=== PATIENT | male | born 1940 | race Caucasian/White ===

== ENCOUNTER 2021-01-16 21:45 | Inpatient (IN) | payer MEDICARE, BC ==
--- NOTE | 2021-01-16 22:39 | ED Physician Documentation ---
PD HPI NVD - Stated complaint Stated Complaint: VOMITING - Chief complaint Chief Complaint: Abd Pain - History obtained from History obtained from: Patient - History of Present Illness Timing - onset: Other (gradually worsening over 1 year (see narrative, below)) Timing - details: Gradual onset Pain level max: 0 Pain level now: 0 Associated symptoms: Weight loss. No: Fever, Abdominal pain, Chest pain, Hematemesis, Melena, Hematochezia Worsened by: Eating (any PO intake) Similar symptoms before: Has not had sx before Recently seen: Not recently seen (patient says he has not seen a doctor on a regular/outpatient basis for nearly 30 years) - Additonal information Additional information: patient states "I can't keep anything down". He says he has had gradually increasing difficulty tolerating solids for approximately the past year; he initially was having sensation of food getting "caught", but gradually felt food was no longer passing into his stomach and would build up in his chest. he would sometimes vomit food back up that he had eaten hours earlier. Since earlier this year, he switched to a liquid diet, but has had increasing difficulty tolerating liquids. Over the past 3 days, he feels sensation that even sips of water are not passing into his stomach. He denies any pain, fever. He is not COVID vaccinated Review of Systems Constitutional: reports: Weight Loss. denies: Fever, Chills, Sweats Throat: reports: Reviewed and negative Cardiac: reports: Reviewed and negative Respiratory: reports: Reviewed and negative GI: denies: Abdominal Pain, Abdominal Swelling, Nausea, Vomiting, Constipation, Diarrhea, Hematemesis, Bloody / black stool : denies: Dysuria, Frequency Neurologic: denies: Generalized weakness, Headache PD PAST MEDICAL HISTORY - Past Medical History Past Medical History: No - Past Surgical History Past Surgical History: No - Present Medications Home Medications: Ambulatory Orders Medication Instructions Recorded Confirmed No Known Home Medications 01/16/21 01/16/21 - Allergies Allergies/Adverse Reactions: Allergies Allergy/AdvReac Type Severity Reaction Status Date / Time No Known Drug Allergies Allergy Verified 01/16/21 22:09 - Living Situation Living Arrangement: reports: At home - Social History Does the pt smoke?: No PD ED PE NORMAL - Vitals Vital signs reviewed: Yes - General General: Alert and oriented X 3, No acute distress, Other (markedly scaphoid abdomen) - HEENT HEENT: Other (tacky/pasty mucous membranes) - Neck Neck: Supple, no meningeal sign - Cardiac Cardiac: No murmur - Respiratory Respiratory: No respiratory distress, Clear bilaterally - Abdomen Abdomen: Soft, Non tender, Non distended, Other (markedly scaphoid abdomen) - Derm Derm: Normal color, Warm and dry - Extremities Extremities: No edema - Neuro Neuro: Alert and oriented X 3 PD ED PE EXPANDED - Cardiac Cardiac: Tachy, Regular Rhythm Results - Vitals Vitals: Vital Signs - 24 hr 01/16/21 01/16/21 01/17/21 22:07 22:08 00:08 Temperature 37.0 C 37.0 C Heart Rate 114 H 114 H 93 Respiratory 17 17 16 Rate Blood Pressure 137/60 H 137/60 H 132/66 H O2 Saturation 97 97 98 01/17/21 01/17/21 02:00 04:00 Temperature 36.9 C Heart Rate 86 90 Respiratory 15 15 Rate Blood Pressure 120/62 115/68 O2 Saturation 99 99 Oxygen O2 Source Room air - Labs Labs: Microbiology 01/17/21 03:50 Occult Blood - Final Stool Laboratory Tests 01/16/21 01/16/21 01/16/21 23:00 23:00 23:18 WBC 12.3 H RBC 3.47 L Hgb 7.1 L Hct 25.5 L MCV 73.5 L MCH 20.5 L MCHC 27.8 L RDW 17.2 H Plt Count 381 MPV 9.8 Neut # (Auto) 10.7 H Lymph # (Auto) 0.4 L [place] # (Auto) 1.0 Eos # (Auto) 0.1 Baso # (Auto) 0.0 Absolute Nucleated RBC 0.00 Nucleated RBC % 0.0 PT INR APTT Sodium 141 Potassium 4.2 Chloride 102 Carbon Dioxide 24 Anion Gap 15.0 H BUN 29 H Creatinine 0.8 Estimated GFR (MDRD) 93 Glucose 170 H Calcium 9.2 Total Bilirubin 0.7 AST 13 ALT 11 Alkaline Phosphatase 63 Total Protein 7.3 Albumin 3.6 Globulin 3.7 Albumin/Globulin Ratio 1.0 Lipase 19 L Urine Color Urine Clarity Urine pH Ur Specific [place] Urine Protein Urine Glucose (UA) Urine Ketones Urine Occult Blood Urine Nitrite Urine Bilirubin Urine Urobilinogen Ur Leukocyte Esterase Ur Microscopic Review Urine Culture Comments Nasal Adenovirus (PCR) Nasal B. parapertussis DNA (PCR) Nasal Coronavir 229E PCR Nasal Coronavir HKU1 PCR Nasal Coronavir NL63 PCR Nasal Coronavir OC43 PCR Nasal Enterovir/Rhinovir PCR Nasal Influenza B PCR Nasal Influenza A PCR Nasal Parainfluen 1 PCR Nasal Parainfluen 2 PCR Nasal Parainfluen 3 PCR Nasal Parainfluen 4 PCR Nasal RSV (PCR) Nasal B.pertussis DNA PCR Nasal C.pneumoniae (PCR) [place]lio Human Metapneumo PCR Nasal M.pneumoniae (PCR) Nasal SARS-CoV-2 (PCR) Blood Type Blood Type Recheck A POSITIVE Antibody Screen 01/16/21 01/17/21 01/17/21 23:19 00:08 04:00 WBC RBC Hgb Hct MCV MCH MCHC RDW Plt Count MPV Neut # (Auto) Lymph # (Auto) [place] # (Auto) Eos # (Auto) Baso # (Auto) Absolute Nucleated RBC Nucleated RBC % PT 15.3 H INR 1.4 H APTT 26.2 Sodium Potassium Chloride Carbon Dioxide Anion Gap BUN Creatinine Estimated GFR (MDRD) Glucose Calcium Total Bilirubin AST ALT Alkaline Phosphatase Total Protein Albumin Globulin Albumin/Globulin Ratio Lipase Urine Color Urine Clarity Urine pH Ur Specific [place] Urine Protein Urine Glucose (UA) Urine Ketones Urine Occult Blood Urine Nitrite Urine Bilirubin Urine Urobilinogen Ur Leukocyte Esterase Ur Microscopic Review Urine Culture Comments Nasal Adenovirus (PCR) NOT DETECTED Nasal B. parapertussis DNA (PCR) NOT DETECTED Nasal Coronavir 229E PCR NOT DETECTED Nasal Coronavir HKU1 PCR NOT DETECTED Nasal Coronavir NL63 PCR NOT DETECTED Nasal Coronavir OC43 PCR NOT DETECTED Nasal Enterovir/Rhinovir PCR NOT DETECTED Nasal Influenza B PCR NOT DETECTED Nasal Influenza A PCR NOT DETECTED Nasal Parainfluen 1 PCR NOT DETECTED Nasal Parainfluen 2 PCR NOT DETECTED Nasal Parainfluen 3 PCR NOT DETECTED Nasal Parainfluen 4 PCR NOT DETECTED Nasal RSV (PCR) NOT DETECTED Nasal B.pertussis DNA PCR NOT DETECTED Nasal C.pneumoniae (PCR) NOT DETECTED [place]lio Human Metapneumo PCR NOT DETECTED Nasal M.pneumoniae (PCR) NOT DETECTED Nasal SARS-CoV-2 (PCR) NOT DETECTED Blood Type A POSITIVE Blood Type Recheck Antibody Screen NEGATIVE 01/17/21 04:30 WBC RBC Hgb Hct MCV MCH MCHC RDW Plt Count MPV Neut # (Auto) Lymph # (Auto) [place] # (Auto) Eos # (Auto) Baso # (Auto) Absolute Nucleated RBC Nucleated RBC % PT INR APTT Sodium Potassium Chloride Carbon Dioxide Anion Gap BUN Creatinine Estimated GFR (MDRD) Glucose Calcium Total Bilirubin AST ALT Alkaline Phosphatase Total Protein Albumin Globulin Albumin/Globulin Ratio Lipase Urine Color YELLOW Urine Clarity CLEAR Urine pH 5.5 Ur Specific [place] 1.015 Urine Protein NEGATIVE Urine Glucose (UA) NEGATIVE Urine Ketones 40 H Urine Occult Blood NEGATIVE Urine Nitrite NEGATIVE Urine Bilirubin NEGATIVE Urine Urobilinogen 0.2 (NORMAL) Ur Leukocyte Esterase NEGATIVE Ur Microscopic Review NOT INDICATED Urine Culture Comments NOT INDICATED Nasal Adenovirus (PCR) Nasal B. parapertussis DNA (PCR) Nasal Coronavir 229E PCR Nasal Coronavir HKU1 PCR Nasal Coronavir NL63 PCR Nasal Coronavir OC43 PCR Nasal Enterovir/Rhinovir PCR Nasal Influenza B PCR Nasal Influenza A PCR Nasal Parainfluen 1 PCR Nasal Parainfluen 2 PCR Nasal Parainfluen 3 PCR Nasal Parainfluen 4 PCR Nasal RSV (PCR) Nasal B.pertussis DNA PCR Nasal C.pneumoniae (PCR) [place]lio Human Metapneumo PCR Nasal M.pneumoniae (PCR) Nasal SARS-CoV-2 (PCR) Blood Type Blood Type Recheck Antibody Screen - Rads (name of study) CT chest with IV contrast Radiology: Prelim report reviewed, See rad report CT A/P with IV contrast Radiology: Prelim report reviewed, See rad report PD MEDICAL DECISION MAKING - ED course Complexity details: reviewed results, re-evaluated patient, considered differential, d/w patient ED course: blood tests demonstrate significant anemia, hgb 7.1; indices are low. CT chest with IV contrast is suspicious for esophageal neoplasm with proximal obstruction. CT A/P demonstrates 1.9 cm hepatic mass. D/W Dr. Coffman, recommends admit to hospitalist service with plan for upper GI and biopsies tomorrow. D/W Dr. Mcmanus who evaluated patient in ED; she then contacted Dr. Coffman and discussed plans and goals for admission and subsequently admitted patient to [facility] hospitalist service. I discussed results with the patient and that further testing would be needed for definitive diagnosis but that his HPI and CT results are highly suspicious for malignancy (cancer). Departure - Departure Disposition: [facility] DC/Xfer Clinical Impression: Esophageal mass Anemia Qualifiers: Anemia type: unspecified type Qualified Code(s): D64.9 - Anemia, unspecified Condition: Stable Discharge Date/Time: 01/17/21 05:42
[2021-01-16 23:17] LABS: BASOPHILS % (AUTO) 0.3 %; EOSINOPHILS # (AUTO) 0.1 10^3/uL (0.0-0.7); EOSINOPHILS % (AUTO) 0.8 %; HCT - HEMATOCRIT 25.5 % (42.0-52.0); HGB - HEMOGLOBIN 7.1 g/dL (14.0-18.0); LYMPHOCYTES # (AUTO) 0.4 10^3/uL (1.5-3.5); LYMPHOCYTES % (AUTO) 2.9 %; MEAN CORPUSCULAR HEMOGLOBIN 20.5 pg (27.0-31.0); MEAN CORPUSCULAR HGB CONC 27.8 g/dL (32.0-36.0); MEAN CORPUSCULAR VOLUME 73.5 fL (80.0-94.0); MEAN PLATELET VOLUME 9.8 fL (7.4-11.4); MONOCYTES % (AUTO) 8.4 %; NEUTROPHILS # (AUTO) 10.7 10^3/uL (1.5-6.6); NEUTROPHILS % (AUTO) 86.9 %; PLT - PLATELET COUNT 381 10^3/uL (130-450); RED BLOOD COUNT 3.47 10^6/uL (4.70-6.10); RED CELL DISTRIBUTION WIDTH 17.2 % (12.0-15.0); WHITE BLOOD COUNT 12.3 x10^3/uL (4.8-10.8)
[2021-01-16 23:31] LABS: ALBUMIN 3.6 g/dL (3.2-5.5); BILIRUBIN,TOTAL 0.7 mg/dL (0.2-1.0); CALCIUM 9.2 mg/dL (8.5-10.3); CREATININE 0.8 mg/dL (0.6-1.2); POTASSIUM 4.2 mmol/L (3.5-5.0); TOTAL PROTEIN 7.3 g/dL (6.7-8.2)
[2021-01-16] MEDS ORDERED: SODIUM CHLORIDE 0.9% 1,000 ML IV STA (23:45)
[2021-01-16 23:46] LABS: INR 1.4 (0.8-1.2); PT - PROTHROMBIN TIME 15.3 secs (9.9-12.6)
[2021-01-16 23:53] LABS: PARTIAL THROMBOPLASTIN TIME 26.2 secs (24.9-33.3)
[2021-01-17] MEDS ORDERED: IOPAMIDOL-300 100 ML VIAL ONE (00:01)
[2021-01-17] MEDS ORDERED: IOPAMIDOL-300 100 ML VIAL IVP ONE (00:37)
[2021-01-17 04:48] LABS: BILIRUBIN,URINE NEGATIVE (NEGATIVE); GLUCOSE, URINE (UA) NEGATIVE (NEGATIVE); KETONES,URINE (UA) 40 mg/dL (NEGATIVE); LEUKOCYTE ESTERASE, URINE NEGATIVE (NEGATIVE); NITRITE,URINE NEGATIVE (NEGATIVE); OCCULT BLOOD,URINE NEGATIVE (NEGATIVE); PH,URINE 5.5 PH (5.0-7.5); PROTEIN,URINE NEGATIVE (NEGATIVE); UROBILINOGEN,URINE 0.2 (NORMAL) E.U./dL (NORMAL)
[2021-01-17] MEDS ORDERED: ONDANSETRON 4 MG/2 ML VIAL IVP PRN (04:49)
[2021-01-17] MEDS ORDERED: D5NS W/20 MEQ KCL 1,000 ML IV SCH (05:00)
[2021-01-17 05:02] LABS: CLARITY,URINE CLEAR (CLEAR)
[2021-01-17 05:02] LABS: B. PARAPERTUSSIS- RESP PCR PAN NOT DETECTED; B. PERTUSSIS- RESP PCR PANEL NOT DETECTED; C. PNEUMONIAE- RESP PCR PANEL NOT DETECTED; CORONAVIRUS 229E-RESP PCR NOT DETECTED; CORONAVIRUS HKU1-RESP PCR NOT DETECTED; CORONAVIRUS NL63-RESP PCR NOT DETECTED; CORONAVIRUS OC43-RESP PCR NOT DETECTED; HUMAN METAPNEUMOVIRUS NOT DETECTED; INFLUENZA A- RESP PCR PANEL NOT DETECTED; INFLUENZA B - RESP PCR PANEL NOT DETECTED; M. PNEUMONIAE- RESP PCR PANEL NOT DETECTED; PARAINFLUENZA VIRUS 1 NOT DETECTED; PARAINFLUENZA VIRUS 2 NOT DETECTED; PARAINFLUENZA VIRUS 3 NOT DETECTED; PARAINFLUENZA VIRUS 4 NOT DETECTED; RHINOVIRUS/ENTEROVIRUS NOT DETECTED; RSV- RESP PCR PANEL NOT DETECTED; SARS-CoV-2 -RESP PCR PANEL NOT DETECTED
--- NOTE | 2021-01-17 05:12 | HISTORY & PHYSICAL EXAMINATION ---
History and Physical - History and Physical Chief complaint: Dysphagia/inability to swallow liquids Source of history: ER signout, patient, medical record review History of present illness: The patient is an 80-year-old white male with no diagnosed past medical problems. He states that last time he visited with a medical professional was in the early . He does not take any outpatient medication. He reports that he used to enjoy drinking scotch with his brother and eating spicy salsa and chips. Early 2020, he noted regurgitation, acid reflux and difficulty swallowing the chips. In June he stopped drinking alcohol completely, subsequently had some trouble with nausea and vomiting and developed even more difficulty swallowing. Initially his swallowing difficulty only included solid foods. A few weeks ago however he started to have more difficulty swallowing even liquids and in the past 3 days he could not keep any liquids down. He used to be 180 pounds, he estimates he lost more than 50 pounds. He does not complain of pain. Reports being constipated. Regarding ER work-up, pertinent results are listed below. Past medical history: No past medical history reported by the patient Outpatient medications: None taken Allergies: No known drug allergies Family history: No pertinent family history in first-degree relatives. Social history and functional status: The patient is a local resident, lives on [address] [facility] [address] with his . He is fully functional, still drives. He used to drink scotch but stopped in June 2020 and since then he has not had any alcohol. He reports significant weight loss more than 50 pounds since June. He is a non-smoker. Advance care plan/care logistics and CODE STATUS: Although the patient is a functional adult he neglected his general health and ignored his symptoms for quite some time. After discussing the ER work-up, his symptoms of dysphagia and significant weight loss, he verbalizes understanding of the severity of his condition. When we discussed ER work-up he was bargaining with the diagnosis, he asked me whether the esophageal obstruction could be secondary to a scar rather than malignancy. He is very articulate, quick with his thinking, easily understands the context, repeats the information back and asks educated and reasonable questions. He understands that most likely his disease is malignant and advanced. He would like to arrive on the diagnosis prior to making decisions regarding care plan. Initially he would like to have all treatment options available to prolong his life. He wishes to have aggressive care, unless his disease is, with certainty, proven uncurable and advanced. He tells me he would like to be transferred to higher level of care if at other hospital more treatment or evaluation options would be available. At the same time he understands that all hospitals are on divert and if he would wait in the ER that would delay his care obtaining a biopsy. Therefore we agree that he would get admitted to our hospital, undergo endoscopy by the surgeon, have biopsy taken which will get him closer to establishing the diagnosis. In the meantime he will receive IV hydration. Receiving a feeding tube at our hospitalis a possibility. The patient understands that other than IV hydration, endoscopy with biopsy and gastrostomy tube placement no other management options are available at [facility]. He wishes to remain full code; he is interested in transferring to higher level of care if additional services and therapies can be offered. Based on the clinical course however he also is open to start palliative care discussion and consider comfort care. The patient is open minded, quite put together and seems appropriately and logically processing the information provided. He understands that with his nutritional status he would not benefit from life support. He will likely switch to DO NOT RESUSCITATE status after endoscopy completed and procedural complication would no longer be a concern. Review of symptoms: 12 point review done, pertinent positives and negatives listed above at history present illness, there was no additional positive. Physical exam: Vital Signs - 24 hr 01/16/21 01/16/21 01/17/21 22:07 22:08 00:08 Temperature 37.0 C 37.0 C Heart Rate 114 H 114 H 93 Respiratory 17 17 16 Rate Blood Pressure 137/60 H 137/60 H 132/66 H O2 Saturation 97 97 98 01/17/21 01/17/21 02:00 04:00 Temperature 36.9 C Heart Rate 86 90 Respiratory 15 15 Rate Blood Pressure 120/62 115/68 O2 Saturation 99 99 Oxygen O2 Source Room air General: The patient is a well-developed thin, elderly male; without acute distress. HEENT: Dry oral mucosa. Respiratory: No increased work of breathing, clear to auscultation bilaterally without wheezes or crackles. CVS: S1, S2, Regular tachycardia, no pathgologic murmur. Abdomen: Scaphoid, large skin folds, nontender, no palpable mass, hypoactive bowel tones. Neurologic: Alert, oriented; no focal lateralizing sign. Psych: Cooperative. Lymph: No pitting pedal edema. Skin: Pallor, no rash. Musculoskeltal: Temporal wasting, visible ribs, skin and bones, no fat pads. Diagnostic work-up: Microbiology 01/17/21 03:50 Occult Blood - Final Stool Laboratory Tests 01/16/21 01/16/21 01/16/21 23:00 23:00 23:18 WBC 12.3 H RBC 3.47 L Hgb 7.1 L Hct 25.5 L MCV 73.5 L MCH 20.5 L MCHC 27.8 L RDW 17.2 H Plt Count 381 MPV 9.8 Neut # (Auto) 10.7 H Lymph # (Auto) 0.4 L [place] # (Auto) 1.0 Eos # (Auto) 0.1 Baso # (Auto) 0.0 Absolute Nucleated RBC 0.00 Nucleated RBC % 0.0 PT INR APTT Sodium 141 Potassium 4.2 Chloride 102 Carbon Dioxide 24 Anion Gap 15.0 H BUN 29 H Creatinine 0.8 Estimated GFR (MDRD) 93 Glucose 170 H Calcium 9.2 Total Bilirubin 0.7 AST 13 ALT 11 Alkaline Phosphatase 63 Total Protein 7.3 Albumin 3.6 Globulin 3.7 Albumin/Globulin Ratio 1.0 Lipase 19 L Urine Color Urine Clarity Urine pH Ur Specific [place] Urine Protein Urine Glucose (UA) Urine Ketones Urine Occult Blood Urine Nitrite Urine Bilirubin Urine Urobilinogen Ur Leukocyte Esterase Ur Microscopic Review Urine Culture Comments Nasal Adenovirus (PCR) Nasal B. parapertussis DNA (PCR) Nasal Coronavir 229E PCR Nasal Coronavir HKU1 PCR Nasal Coronavir NL63 PCR Nasal Coronavir OC43 PCR Nasal Enterovir/Rhinovir PCR Nasal Influenza B PCR Nasal Influenza A PCR Nasal Parainfluen 1 PCR Nasal Parainfluen 2 PCR Nasal Parainfluen 3 PCR Nasal Parainfluen 4 PCR Nasal RSV (PCR) Nasal B.pertussis DNA PCR Nasal C.pneumoniae (PCR) [place]lio Human Metapneumo PCR Nasal M.pneumoniae (PCR) Nasal SARS-CoV-2 (PCR) Blood Type Blood Type Recheck A POSITIVE Antibody Screen 01/16/21 01/17/21 01/17/21 23:19 00:08 04:00 WBC RBC Hgb Hct MCV MCH MCHC RDW Plt Count MPV Neut # (Auto) Lymph # (Auto) [place] # (Auto) Eos # (Auto) Baso # (Auto) Absolute Nucleated RBC Nucleated RBC % PT 15.3 H INR 1.4 H APTT 26.2 Sodium Potassium Chloride Carbon Dioxide Anion Gap BUN Creatinine Estimated GFR (MDRD) Glucose Calcium Total Bilirubin AST ALT Alkaline Phosphatase Total Protein Albumin Globulin Albumin/Globulin Ratio Lipase Urine Color Urine Clarity Urine pH Ur Specific [place] Urine Protein Urine Glucose (UA) Urine Ketones Urine Occult Blood Urine Nitrite Urine Bilirubin Urine Urobilinogen Ur Leukocyte Esterase Ur Microscopic Review Urine Culture Comments Nasal Adenovirus (PCR) NOT DETECTED Nasal B. parapertussis DNA (PCR) NOT DETECTED Nasal Coronavir 229E PCR NOT DETECTED Nasal Coronavir HKU1 PCR NOT DETECTED Nasal Coronavir NL63 PCR NOT DETECTED Nasal Coronavir OC43 PCR NOT DETECTED Nasal Enterovir/Rhinovir PCR NOT DETECTED Nasal Influenza B PCR NOT DETECTED Nasal Influenza A PCR NOT DETECTED Nasal Parainfluen 1 PCR NOT DETECTED Nasal Parainfluen 2 PCR NOT DETECTED Nasal Parainfluen 3 PCR NOT DETECTED Nasal Parainfluen 4 PCR NOT DETECTED Nasal RSV (PCR) NOT DETECTED Nasal B.pertussis DNA PCR NOT DETECTED Nasal C.pneumoniae (PCR) NOT DETECTED [place] Human Metapneumo PCR NOT DETECTED Nasal M.pneumoniae (PCR) NOT DETECTED Nasal SARS-CoV-2 (PCR) NOT DETECTED Blood Type A POSITIVE Blood Type Recheck Antibody Screen NEGATIVE Imaging reviewed per ER signout and per preliminary CT read, CT scan of the chest showed a large obstructing esophageal mass, water not passing through. CT scan of the abdomen showed a 1.6 cm lesion in the liver. In addition there was colonic fecal retention without obstruction. 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 Plan and orders: Admitted as inpatient, with the expectation to have UGIE /biopsy, to receive IV hydration and subsequently either transfer to higher level of care or continue discussions regarding palliative care. Patient understands that at [facility] no inpatient oncology, radiation oncology, esophageal stent placement or complex surgery would be available. Logistics of this patient's care were affected by the statewide shortage of beds and no available hospital to transfer to for higher level of care. Prior to admission the care was coordinated with the ER and with the on-call surgeon/dr. Coffman. Per discussion with the surgeon endoscopy with biopsy and feeding tube placement can be offered in our hospital. Care plan was discussed with the patient, he understands that no further therapy or management is available in our hospital. IV hydration with dextrose and half normal saline. Check hemoglobin A1c. Venodyne boots for DVT prophylaxis. N.p.o. Proton pump inhibitor. Full code for now/continue discussions based on the clinical course. Attestation: I certify that the patient meets inpatient criteria based on the admission diagnosis, and the above assessment, findings and plan; he is expected to be hospitalized for more than 48 hours however to discharge or transfer to other facility within less than 96 hours. Time: 60 minutes spent on admission, which included coordination of the care with surgeon and ER, in addition 20 minutes spent with the patient discussing goals of care and logistics of care.
[2021-01-17] MEDS: SODIUM CHLORIDE FLUSH 0.9% 10 ML SYRINGE IVP PRN ×4 (05:45→23:02)
[2021-01-17] MEDS: DEXTROSE 5%-0.45% NACL 1,000 ML IV SCH ×2 (05:45→20:31)
[2021-01-17] MEDS ORDERED: PANTOPRAZOLE 40 MG VIAL IVP SCH ×2 (07:00→10:10)
[2021-01-17] MEDS: SODIUM CHLORIDE FLUSH 0.9% 10 ML SYRINGE IVP SCH ×2 (07:59→17:34)
--- NOTE | 2021-01-17 10:09 | CT Report ---
PROCEDURE: CHEST W INDICATIONS: unable to tolerate PO, unexplained weight loss CONTRAST: IV CONTRAST: Isovue 300 ml: 100 PO CONTRAST: *NO PO CONTRAST TECHNIQUE: After the administration of intravenous contrast, images were acquired from the pulmonary apices to t he posterior costophrenic angles. Multiplanar MIP reformats were acquired. For radiation dose reduc tion, the following was used: automated exposure control, adjustment of mA and/or kV according to pa tient size. COMPARISON: None. FINDINGS: Image quality: Excellent. Lungs and pleura: Bilateral groundglass infiltrates, right greater than left. No pleural effusions o r pneumothorax. Central and peripheral airways are patent and normal in caliber. Mediastinum: Heart size is normal. No pericardial effusion. No mediastinal or hilar adenopathy by size criteria. Small subcentimeter mediastinal lymph nodes are indeterminate. Thoracic aorta and cent ral pulmonary arteries are normal in size. Esophagus is normal in caliber. Small hiatal hernia. There is marked distal esophageal thickening and appearance of a distal esophage al mass at the GE junction. Proximal esophagus is moderately distended containing fluid and air-fluid level. The CT findings are suspicious for distal esophageal obstruction. 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 No vertebral body compression fractures. No axillary or supraclavicular adenopathy by s ize criteria. The thyroid is normal in size and there are no incidental findings.. Abdomen: There is a 1.9 cm mass in the anterior segment of the right hepatic lobe suspicious for meta stasis. A 1.2 cm low-density lesion in the medial aspect of the posterior right hepatic lobe on hepat ic capsule may be a cyst. IMPRESSION: 1. There is esophageal obstruction with moderately distended proximal esophagus containing fluid and air-fluid level. Distally, there is thickening and appearance of a mass at the GE junction, highly travis spicious for esophageal neoplasm. Recommend EGD for follow-up evaluation. 2. Bilateral groundglass infiltrates suspicious for pneumonia including Covid-19 pneumonia. 3. A 1.9 cm mass in her, suspicious for metastasis. Please see separate CT abdomen report for detail. No significant discrepancy with the preliminary interpretation. Reviewed by: Horacio Zavala MD on 01/17/2021 10:08 AM PDT Approved by: Horacio Zavala MD on 01/17/2021 10:08 AM [facility] Station ID: [id number]
--- NOTE | 2021-01-17 10:22 | CT Report ---
PROCEDURE: Abdomen/Pelvis W INDICATIONS: not tolerating PO, unexplained weight loss CONTRAST: IV CONTRAST: Isovue 300 ml: 100 PO CONTRAST: *NO PO CONTRAST TECHNIQUE: After the administration of IV contrast, 5 mm thick sections acquired from the diaphragms to the symp hysis. 5 mm thick coronal and sagittal reformats were acquired. For radiation dose reduction, the f ollowing was used: automated exposure control, adjustment of mA and/or kV according to patient size. COMPARISON: None. FINDINGS: Image quality: Excellent. ABDOMEN: Lung bases: Heart size is normal. Distal esophageal obstruction with thickening and masslike densit y at the GE junction. There are groundglass infiltrates in lower lobes bilaterally. Solid organs: There is a 1.9 cm low-density mass in the anterior segment of right hepatic lobe patie nt for metastasis. A 1.2 cm hypodensity in the posterior segment of the right hepatic lobe is most li gloria a cyst. Liver and spleen are normal in size. Gallbladder is normal. Biliary system is non dila epi. Pancreas enhances normally. No adrenal nodules. Kidneys demonstrate normal size and enhanceme nt, without hydronephrosis. Peritoneum and bowel: There is a large amount of stool in colon. Bowel loops demonstrate normal wall thickness and caliber. Diverticulosis without diverticulitis. No free fluid or air. Nodes and vessels: No retroperitoneal or mesenteric adenopathy by size criteria. Small gastrohepati c ligament lymph nodes measure up to 0.7 cm, indeterminate. Aorta and inferior vena cava are normal i n size. Moderate atherosclerotic calcifications. Miscellaneous: No ventral hernias. PELVIS: Genitourinary: Bladder wall thickness is normal. Miscellaneous: No inguinal hernias or adenopathy. Bones: Lucency in the T11 vertebral body extending into the right pedicle suspicious for metastasis. There is possible early logical fracture of 11. No vertebral body compression fractures. IMPRESSION: 1. Distal esophageal obstruction with thickening and masslike density at the GE junction suspicious f or neoplasm. Recommend EGD for follow-up evaluation. Please see separate CT chest report for detail. 2. A 1.9 cm low-density mass in the anterior segment of the right hepatic lobe, suspicious for metast asis. A separate 1.2 cm hypodensity in the posterior segment of the right hepatic lobe may be a hepat ic cyst. FDG PET-CT is suggested for follow-up evaluation. This lesion may be amendable for CT or ult rasound guided percutaneous biopsy. 3. Lucent lesion in T11 vertebral body extending to the right posterior element suspicious for osseou s metastasis. There is possible early pathological fracture of T11. Recommend MRI with and without co ntrast for further evaluation. 4. Small indeterminate gastrohepatic ligament lymph nodes are present. These lymph nodes can be evalu ated on FDG PET. 5. Bilateral groundglass infiltrates suspicious for atypical pneumonia. Pulmonary metastases are felt less likely. No significant discrepancy with the preliminary interpretation. Reviewed by: Horacio Zavala MD on 01/17/2021 10:21 AM PDT Approved by: Horacio Zavala MD on 01/17/2021 10:21 AM PDT Station ID: [id number]
[2021-01-17] MEDS ORDERED: BISACODYL 10 MG SUPP PR ONE (10:51)
--- NOTE | 2021-01-17 11:03 | PHARMACY PROGRESS NOTE ---
- Best Possible Medication History Admit Date and Time: 01/17/21 0449 Processed by: Pharmacy Medication History completed: Yes Patient Interview: Completed Secondary Source(s): Insurance records Patient interviewed by filling technician. No home medications. As the person ultimately responsible for medication therapy, providers are able to order a medication from an existing home medication list in [facility] via the "Reconcile Routine" prior to Confirmation of that medication by technical customer support specialist. Such practice is discouraged except when the physician, in their clinical judgment, deems that a medical need exists for a medication without regard to previous use.
--- NOTE | 2021-01-17 12:34 | CONSULTATION NOTE ---
Surgery Consult - Admit Date Hospital Admission Date: 01/17/21 - Consult Date Consult Date: 01/17/21 Requesting Provider: MD Tai - Chief Complaint Chief Complaint: Inability to swallow, weight loss - Home Meds/Allergies Home Medications: Patient History Medication Instructions Recorded Confirmed No Known Home Medications 01/16/21 01/16/21 Allergies/Adverse Reactions: Allergies Allergy/AdvReac Type Severity Reaction Status Date / Time No Known Drug Allergies Allergy Verified 01/16/21 22:09 - Vital Signs Vital Signs: Last Vital Signs Temp 36.6 C 01/17/21 08:00 Pulse 78 01/17/21 08:00 Resp 16 01/17/21 08:00 BP 132/56 H 01/17/21 08:00 Pulse Ox 98 01/17/21 08:00 Intake & Output: Intake & Output 01/14/21 01/15/21 01/16/21 01/17/21 23:59 23:59 23:59 23:59 Intake Total 1000 Output Total 0 Balance 1000 - Lab Results Result Diagrams: 01/16/21 23:00 01/16/21 23:00 - Consultation Note Consultation Note: Terell is a pleasant 80-year-old gentleman who presented to the emergency room last evening complaining that he was unable to swallow. He reports that for the last several months, approximately a year, he has noticed its been a little bit difficult to swallow food. When it became difficult to swallow solid food he switched to softer food and eventually to liquids. In the past 3 to 4 days, he says he has been unable to keep liquids down. Over the same period of time, he has had a significant amount of weight loss. Terell is a very pleasant gentleman and he says he is not the kind of gentleman to go to doctors frequently. The last time he saw physician was sometime in the night in the emergency room last evening he was worked up and a chest CT revealed an obstructing esophageal mass. He was given the option to wait for transfer to a higher level of care for consideration of stenting but no beds were available. In addition to the mass in the esophagus, there is a very suspicious lesion present in the liver. He was admitted to the medicine service and I have been consulted for consideration of EGD for diagnosis. Physical examination reveals a very thin and frail but pleasant gentleman he is in no obvious distress. He tells me that he is in pain because he needs to have a bowel movement. He feels very constipated and says that he has a cramping pain in his right abdomen. He wants to take a pill for this but he is not able to swallow the pill. A suppository has been ordered. HEENT: Normocephalic and atraumatic, pupils equal round reactive to light and accommodation with anicteric sclera Lungs: Clear bilaterally Heart: Regular rate and rhythm Abdomen: Soft, scaphoid, active bowel sounds. Extremities: No evidence of ischemia. Assessment is pleasant gentleman with an ominous appearing esophageal mass. He understands this may very well represent an advanced malignancy. We discussed the risks and benefits of EGD with biopsy today. This will at least give us a direction going forward. If it is possible to pass a feeding tube or an NG tube beyond this mass we will try to do so so that we have a way to feed him while decisions are made.After careful consideration of all the risks and benefits he has elected to schedule the procedure.
[2021-01-17 13:00] LABS: ESTIMATED AVERAGE GLUCOSE 137 mg/dL (70-100); HEMOGLOBIN A1c% 6.4 % (4.27-6.07)
--- NOTE | 2021-01-17 14:13 | ANESTHESIA ---
Pre-Anesthesia VS, & Labs - Diagnosis Esophageal mass, dsyphagia - Procedure EGD with biopsy Vital Signs: Temp Pulse Resp BP Pulse Ox 36.6 C 78 16 132/56 H 98 01/17/21 08:00 01/17/21 08:00 01/17/21 08:00 01/17/21 08:00 01/17/21 08:00 Height: 5 ft 8 in Weight (kg): 56.6 kg Body Mass Index: 18.9 BMI Classification: Healthy weight - NPO >8 hours - Lab Results Current Lab Results: Laboratory Tests 01/17/21 00:08: Estimat Average Glucose 137 H, Hemoglobin A1c % 6.4 H 01/17/21 00:08: Blood Type A POSITIVE, Antibody Screen NEGATIVE 01/16/21 23:19: PT 15.3 H, INR 1.4 H, APTT 26.2 01/16/21 23:18: Blood Type Recheck A POSITIVE 01/16/21 23:00: Sodium 141, Potassium 4.2, Chloride 102, Carbon Dioxide 24, Anion Gap 15.0 H, BUN 29 H, Creatinine 0.8, Estimated GFR (MDRD) 93, Glucose 170 H, Calcium 9.2, Total Bilirubin 0.7, AST 13, ALT 11, Alkaline Phosphatase 63, Total Protein 7.3, Albumin 3.6, Globulin 3.7, Albumin/Globulin Ratio 1.0, Lipase 19 L 01/16/21 23:00: WBC 12.3 H, RBC 3.47 L, Hgb 7.1 L, Hct 25.5 L, MCV 73.5 L, MCH 20.5 L, MCHC 27.8 L, RDW 17.2 H, Plt Count 381, MPV 9.8, Neut # (Auto) 10.7 H, Lymph # (Auto) 0.4 L, [place] # (Auto) 1.0, Eos # (Auto) 0.1, Baso # (Auto) 0.0, Ab solute Nucleated RBC 0.00, Nucleated RBC % 0.0 Fish Bones: 01/16/21 23:00 01/16/21 23:00 Home Medications and Allergies Home Medications: Ambulatory Orders No Known Home Medications 01/16/21 Active Medications Dextrose/Sodium Chloride (D5.45ns) 1,000 mls @ 83.333 mls/hr IV .Q12H [facility] Last Admin: 01/17/21 05:45 Dose: 83.333 mls/hr Documented by: Ondansetron HCl (Ondansetron 4 Mg/2 Ml Vial) 4 mg IVP Q6HR PRN PRN Reason: Nausea / Vomiting Pantoprazole Sodium (Pantoprazole 40 Mg Vial) 40 mg IVP DAILY [facility] Sodium Chloride (Sodium Chloride Flush 0.9% 10 Ml Syringe) 10 ml IVP PRN PRN PRN Reason: NEEDED PER PROVIDER ORDERS Last Admin: 01/17/21 05:45 Dose: 10 ml Documented by: Sodium Chloride (Sodium Chloride Flush 0.9% 10 Ml Syringe) 10 ml IVP 0100,0900,1700 [facility] Last Admin: 01/17/21 07:59 Dose: 10 ml Documented by: No Known Home Medications 01/16/21 Allergies/Adverse Reactions: Allergies Allergy/AdvReac Type Severity Reaction Status Date / Time No Known Drug Allergies Allergy Verified 01/16/21 22:09 Anes History & Medical History - Anesthetic History Anesthesia Complications: reports: No previous complications - Medical History Cardiovascular: reports: None Pulmonary: reports: None Gastrointestinal: reports: GERD Urinary: reports: None Neuro: reports: None Musculoskeletal: reports: None Endocrine/Autoimmune: reports: Type 2 diabetes (probable) Blood Disorders: reports: None Skin: reports: None Smoking Status: Former smoker Psychosocial: reports: Alcohol (quit in [facility]) Other Past Medical History: missing teeth, PTSD 2001 - Surgical History General: reports: Appendectomy Eyes Ears Nose Throat (EENT): reports: Tonsil/Adenoidectomy Exam General: Alert, Oriented x3, Cooperative, No acute distress Dental: WNL Mouth Openin Fingerbreadth Neck Mobility: Normal Mallampati classification: I Mental/Cognitive Status: Alert/Oriented X3, Normal for patient Plan Anesthesia Type: Total IV Consent for Procedure(s) Verified and Reviewed: Yes Code Status: Attempt Resuscitation ASA classification: 3-Severe systemic disease Is this case an emergency?: No
[2021-01-17] MEDS ORDERED: SALINE ENEMA 133 ML BOTTLE RC ONE (14:14)
[2021-01-17] MEDS ORDERED: PROPOFOL 200 MG/20 ML VIAL IVP ONE (15:10)
[2021-01-17] MEDS ORDERED: LIDOCAINE-PF 2% 10 ML AMP SUBQ ONE (15:10)
[2021-01-17] MEDS ORDERED: fentaNYL 100 MCG/2 ML VIAL ONE (15:24)
--- NOTE | 2021-01-17 17:04 | XRAY Report ---
PROCEDURE: Abdomen 1 View X-Ray INDICATIONS: Dobhoff placement TECHNIQUE: 1 view of the abdomen were acquired. COMPARISON: Chest CT 01/17/2021 FINDINGS: Surgical changes and devices: Dobbhoff catheter is noted projecting below the left hemidiaphragm. Bowel: No pneumoperitoneum. The bowel gas pattern is normal. Soft tissues: No masses; visualized solid organ contours appear normal in size. No suspicious abdom inal calcifications. Contrast is noted within the bladder consistent with recent contrast CT exam. Bones: No suspicious bony abnormalities. IMPRESSION: Dobbhoff placement as above. Reviewed by: Megan Williamson MD on 01/17/2021 5:03 PM PDT Approved by: Megan Williamson MD on 01/17/2021 5:03 PM PDT Station ID: [id number]
[2021-01-17] MEDS: MORPHINE 2 MG/ML CARPUJECT IVP PRN ×3 (19:05→23:02)
[2021-01-17] MEDS ORDERED: MINERAL OIL ENEMA 133 ML BOTTLE RC ONE (20:00)
--- NOTE | 2021-01-17 20:32 | ANESTHESIA POST OP EVALUATION ---
Anesthesia Post Eval - Post Anesthesia Eval Vitals: Last Vital Signs Temp 36.8 C 01/17/21 16:15 Pulse 78 01/17/21 17:15 Resp 16 01/17/21 16:00 BP 122/61 01/17/21 17:15 Pulse Ox 96 01/17/21 16:00 CV Function Including HR & BP: Stable Pain Control: Satisfactory Nausea & Vomiting: Negative Mental Status: Baseline Respiratory Status: Airway Patent Hydration Status: Satisfactory Anesthesia Complications: None
[2021-01-18] MEDS: SODIUM CHLORIDE FLUSH 0.9% 10 ML SYRINGE IVP SCH ×3 (00:59→18:24)
[2021-01-18] MEDS: MORPHINE 2 MG/ML CARPUJECT IVP PRN ×6 (00:59→20:31)
[2021-01-18] MEDS ORDERED: MAGNESIUM CITRATE 296 ML BOTTLE NG PRN ×2 (06:10→06:57)
[2021-01-18] MEDS: DEXTROSE 5%-0.45% NACL 1,000 ML IV SCH (06:57)
[2021-01-18 08:40] LABS: BASOPHILS % (AUTO) 0.2 %; EOSINOPHILS # (AUTO) 0.1 10^3/uL (0.0-0.7); EOSINOPHILS % (AUTO) 1.7 %; HCT - HEMATOCRIT 21.1 % (42.0-52.0); LYMPHOCYTES # (AUTO) 0.6 10^3/uL (1.5-3.5); LYMPHOCYTES % (AUTO) 7.1 %; MEAN CORPUSCULAR HEMOGLOBIN 20.7 pg (27.0-31.0); MEAN PLATELET VOLUME 9.6 fL (7.4-11.4); MONOCYTES # (AUTO) 0.9 10^3/uL (0.0-1.0); MONOCYTES % (AUTO) 11.2 %; NEUTROPHILS # (AUTO) 6.7 10^3/uL (1.5-6.6); NEUTROPHILS % (AUTO) 79.4 %; PLT - PLATELET COUNT 244 10^3/uL (130-450); RED BLOOD COUNT 2.85 10^6/uL (4.70-6.10); RED CELL DISTRIBUTION WIDTH 17.3 % (12.0-15.0); WHITE BLOOD COUNT 8.4 x10^3/uL (4.8-10.8)
[2021-01-18 08:43] LABS: HGB - HEMOGLOBIN 5.9 g/dL (14.0-18.0); SLIDE REVIEW? Indicated
[2021-01-18 09:14] LABS: RBC MORPHOLOGY (MULTIPLE) 2+ MICROCYTOSIS (NORMAL)
[2021-01-18] MEDS: LACTULOSE 10 GM /15 ML UDC PO SCH ×2 (11:07→13:03)
[2021-01-18] MEDS: PANTOPRAZOLE 40 MG VIAL IVP SCH (11:30)
[2021-01-18] MEDS: SODIUM CHLORIDE FLUSH 0.9% 10 ML SYRINGE IVP PRN ×2 (11:31→11:54)
--- NOTE | 2021-01-18 13:16 | PROVIDER PROGRESS NOTE ---
Subjective - General Admit Date: 01/17/21 Procedure Date: 01/17/21 Post Op Days: 1 Procedure Performed: EGD with biopsy and feeding tube placement - Other Other Information/Narrative: Called to see patient this morning as his feeding tube would not flush. He tells me he is feeling very anxious. He is considering transfer to [place] so that he can have a higher level of care and begin treatment for esophageal cancer. He says he is not in pain anymore. The right-sided abdominal pain has improved with bowel movements. Objective - Patient Data Vital Signs: Vital Signs x48h Temp Pulse Resp BP 01/18/21 12:35 36.6 C 81 16 139/57 H 01/18/21 12:12 36.6 C 80 14 129/49 L Weight: Weight 01/16/21 01/17/21 01/18/21 23:59 23:59 23:59 Weight (kg) 56.6 kg 56.6 kg 56.6 kg Intake & Output: Intake and Output Totals x24h 01/16/21 01/17/21 01/18/21 23:59 23:59 23:59 Intake Total 1999.000 1334.717 Output Total 0 75 Balance 1999.000 1259.717 - Lab Results Lab Results: 01/18/21 08:33 01/16/21 23:00 Other Lab Results: Lab Results x24hrs 01/18/21 01/17/21 01/17/21 Range/Units 08:33 00:08 00:08 WBC 8.4 (4.8-10.8) x10^3/uL RBC 2.85 L (4.70-6.10) 10^6/uL Hgb 5.9 L* (14.0-18.0) g/dL Hct 21.1 L (42.0-52.0) % MCV 74.0 L (80.0-94.0) fL MCH 20.7 L (27.0-31.0) pg MCHC 28.0 L (32.0-36.0) g/dL RDW 17.3 H (12.0-15.0) % Plt Count 244 (130-450) 10^3/uL MPV 9.6 (7.4-11.4) fL Neut # (Auto) 6.7 H (1.5-6.6) 10^3/uL Lymph # (Auto) 0.6 L (1.5-3.5) 10^3/uL [place] # (Auto) 0.9 (0.0-1.0) 10^3/uL Eos # (Auto) 0.1 (0.0-0.7) 10^3/uL Baso # (Auto) 0.0 (0.0-0.1) 10^3/uL Absolute Nucleated RBC 0.00 x10^3/uL Nucleated RBC % 0.0 /100WBC Manual Slide Review Indicated RBC Morph Micro Appear 2+ MICROCYTOSIS (NORMAL) Estimat Average Glucose 137 H (70-100) mg/dL Hemoglobin A1c % 6.4 H (4.27-6.07) % Blood Type A POSITIVE Antibody Screen NEGATIVE Crossmatch IS Only See Detail - Current Medications Current Medications: Current Medications Generic Name Dose Route Start Last Admin Trade Name Freq PRN Reason Stop Dose Admin Dextrose/Sodium Chloride 1,000 mls @ 83.333 mls/hr 01/17/21 05:00 01/18/21 12:32 D5.45ns IV 0 mls/hr .Q12H [facility] Infusion Lactulose 10 gm 01/18/21 09:00 01/18/21 13:03 Lactulose 10 Gm /15 Ml Udc PO 10 gm DAILY [facility] Administration Morphine Sulfate 4 mg 01/18/21 06:11 01/18/21 11:53 Morphine 2 Mg/Ml Carpuject IVP 4 mg Q2HR PRN Administration PAIN Pantoprazole Sodium 40 mg 01/18/21 09:00 01/18/21 11:30 Pantoprazole 40 Mg Vial IVP 40 mg DAILY [facility] Administration Sodium Chloride 10 ml 01/17/21 04:49 01/18/21 11:54 Sodium Chloride Flush 0.9% 10 Ml Syringe IVP 10 ml PRN PRN Administration NEEDED PER PROVIDER ORDERS Sodium Chloride 10 ml 01/17/21 09:00 01/18/21 11:30 Sodium Chloride Flush 0.9% 10 Ml Syringe IVP 10 ml 0100,0900,1700 [facility] Administration - Physical Exam Comments/Other: Above tube is in place. It is untaped and the end port closed. With a 20 cc syringe containing tap water in the side-port, the tube was gently pulled back approximately 5 cm.At that point, I was able to easily flush with no resistance. Impression/Plan - Problem List Problem List: Dobbhoff tube in working order now. Agree with all plans for tube feeds and supportive care.
--- NOTE | 2021-01-18 14:12 | PROVIDER PROGRESS NOTE ---
Subjective - Prog Note Date Prog Note Date: 01/18/21 Prog Note Time: 14:10 - Subjective Pt reports feeling: No change Subjective: he is miserable w abd distension from no BM for days. Has had tap water enema, oil retention enema, and no results. Dobhoff in place. EGD discussed w Dr. Coffman. This morning his hemoglobin was 5.9. Late this afternoon he had emesis of combination of saliva and some bright red blood. Blood pressure was stable with this. He is not tachycardic. No hematochezia. Current Medications - Current Medications Current Medications: Active Medications Dextrose/Sodium Chloride (D5.45ns) 1,000 mls @ 83.333 mls/hr IV .Q12H [facility] Last Infusion: 01/18/21 12:32 Dose: 0 mls/hr Documented by: Insulin Aspart (Insulin Aspart 300 Unit/3 Ml Pen) 1 - 9 unit SUBQ 0800,1200,1700,2100 [facility]; Protocol Lactulose (Lactulose 10 Gm /15 Ml Udc) 10 gm PO DAILY [facility] Last Admin: 01/18/21 13:03 Dose: 10 gm Documented by: Lorazepam (Lorazepam 2 Mg/Ml Vial) 0.5 mg IVP Q2H PRN PRN Reason: Anxiety Magnesium Citrate (Magnesium Citrate 296 Ml Bottle) 296 ml NG DAILY PRN PRN Reason: CONSTIPATION Morphine Sulfate (Morphine 2 Mg/Ml Carpuject) 4 mg IVP Q2HR PRN PRN Reason: PAIN Last Admin: 01/18/21 11:53 Dose: 4 mg Documented by: Ondansetron HCl (Ondansetron 4 Mg/2 Ml Vial) 4 mg IVP Q6HR PRN PRN Reason: Nausea / Vomiting Pantoprazole Sodium (Pantoprazole 40 Mg Vial) 40 mg IVP DAILY [facility] Last Admin: 01/18/21 11:30 Dose: 40 mg Documented by: Sodium Chloride (Sodium Chloride Flush 0.9% 10 Ml Syringe) 10 ml IVP PRN PRN PRN Reason: NEEDED PER PROVIDER ORDERS Last Admin: 01/18/21 11:54 Dose: 10 ml Documented by: Sodium Chloride (Sodium Chloride Flush 0.9% 10 Ml Syringe) 10 ml IVP 0100,0900,1700 [facility] Last Admin: 01/18/21 11:30 Dose: 10 ml Documented by: No Known Home Medications 01/16/21 Objective - Vital Signs/Intake & Output Reviewed Vital Signs: Yes Vital Signs: Vital Signs x48h Temp Pulse Resp BP 01/18/21 12:35 36.6 C 81 16 139/57 H 01/18/21 12:12 36.6 C 80 14 129/49 L Intake & Output: Intake & Output 01/15/21 01/16/21 01/17/21 01/18/21 23:59 23:59 23:59 23:59 Intake Total 1999. 1334.717 Output Total 0 75 Balance 1259.717 - Objective General Appearance: positive: Alert, Other (Very weak appearing very fatigued appearing elderly gentleman who looks older than stated age and is very gaunt, cachectic with rib cage visible, bilateral temporal wasting. Just the energy is speaking worse and out. Voice is low and slightly hoarse.) Eyes Bilateral: positive: PERRL, EOMI ENT: positive: Dry mucous membranes Neck: positive: No JVD. negative: Stiff neck Respiratory: positive: Rhonchi, Other (No respiratory distress but speaking exhausts him.) Cardiovascular: positive: Regular rate & rhythm, Systolic murmur. negative: Gallop/S4, Friction rub Abdomen: positive: No organomegaly, Nml bowel sounds, No distention, Tenderness (Mild and generalized in the upper quadrants.). negative: Guarding, Rebound Skin: positive: Warm, Dry, Pallor Extremities: positive: Full ROM, No pedal edema, Other (Severe loss of muscle mass throughout his entire body. Rib cage visible.) Neurologic/Psychiatric: positive: Oriented x3, Motor nml, Weakness (Moderate to severe. Generalized. Nonfocal.). negative: CN's nml (2-12) (Deaf especially in his left ear) - Lab Results Fish Bones: 01/18/21 08:33 01/16/21 23:00 Other Labs: Lab Results x24hrs 01/18/21 01/17/21 Range/Units 08:33 00:08 WBC 8.4 (4.8-10.8) x10^3/uL RBC 2.85 L (4.70-6.10) 10^6/uL Hgb 5.9 L* (14.0-18.0) g/dL Hct 21.1 L (42.0-52.0) % MCV 74.0 L (80.0-94.0) fL MCH 20.7 L (27.0-31.0) pg MCHC 28.0 L (32.0-36.0) g/dL RDW 17.3 H (12.0-15.0) % Plt Count 244 (130-450) 10^3/uL MPV 9.6 (7.4-11.4) fL Neut # (Auto) 6.7 H (1.5-6.6) 10^3/uL Lymph # (Auto) 0.6 L (1.5-3.5) 10^3/uL [place] # (Auto) 0.9 (0.0-1.0) 10^3/uL Eos # (Auto) 0.1 (0.0-0.7) 10^3/uL Baso # (Auto) 0.0 (0.0-0.1) 10^3/uL Absolute Nucleated RBC 0.00 x10^3/uL Nucleated RBC % 0.0 /100WBC Manual Slide Review Indicated RBC Morph Micro Appear 2+ MICROCYTOSIS (NORMAL) Blood Type A POSITIVE Antibody Screen NEGATIVE Crossmatch IS Only See Detail Assessment/Plan - Problem List (1) Esophageal mass Impression: Status post EGD in January 17. It is an ominous looking mass that is large. You can see areas of the submucosa that is also having expansion of possible tumor growth. Biopsy report is pending. Strong suspicion of esophageal neoplasm. He has a 1.9 cm low-density mass in the anterior segment of the right hepatic lobe. Plan: Twice daily proton pump inhibitor Await pathology. Patient states he is interested in getting an opinion about treatment. I have asked him to start thinking about advance care planning. While the for step is to get pathology report, to then decide what he would like to do about treatment. The second part would be what would happen if he does not offer treatment. If he could please start defining the quality of life things that make him happy. What can he do now what he is he let go. At what point would he want us to forego treatment. Is there any treatment that he would draw a line in the sand for. None of these are questions that he can answer right now and I explained that I did not expect him to. But to start having those conversations with his family, children, to let us know what to do for the future. (2) Anemia Impression: With severe microcytosis. Plan: Transfuse every time he gets below 6 7 g of hemoglobin.. Assume he has had chronic GI blood loss because of this esophageal mass. Qualifiers: Anemia type: iron deficiency Qualified Code(s): D64.9 - Anemia, unspecified (3) Protein-calorie malnutrition, severe Impression: He has had significant muscle wasting seen on exam. Has almost no subcutaneous fat. He has been eating less than 50% of any food for 2 weeks or more and in fact stopped eating 3 weeks ago. He just could not clear his secretions anymore. He is lost more than 7.5% of his weight in the last 3 months. Plan: Dobbhoff tube is in place. I have asked nutrition to please start feeding him. (4) Glucose intolerance Impression: Seen by his random glucose and glycosylated hemoglobin. Plan: Start sliding scale insulin 3 times daily
[2021-01-18] MEDS ORDERED: INSULIN ASPART 300 UNIT/3 ML PEN SUBQ SCH (17:00)
[2021-01-18] MEDS: INSULIN REGULAR HUMAN 300 UNIT/3 ML VIAL SUBQ SCH (20:38)
[2021-01-19] MEDS: MORPHINE 2 MG/ML CARPUJECT IVP PRN ×2 (00:39→04:49)
[2021-01-19] MEDS: INSULIN REGULAR HUMAN 300 UNIT/3 ML VIAL SUBQ SCH ×4 (00:40→17:55)
[2021-01-19] MEDS: SODIUM CHLORIDE FLUSH 0.9% 10 ML SYRINGE IVP SCH ×3 (00:47→17:20)
[2021-01-19 06:03] LABS: BASOPHILS % (AUTO) 0.3 %; EOSINOPHILS % (AUTO) 0.1 %; HCT - HEMATOCRIT 24.8 % (42.0-52.0); HGB - HEMOGLOBIN 7.2 g/dL (14.0-18.0); LYMPHOCYTES # (AUTO) 1.2 10^3/uL (1.5-3.5); LYMPHOCYTES % (AUTO) 16.9 %; MEAN CORPUSCULAR HEMOGLOBIN 21.5 pg (27.0-31.0); MEAN PLATELET VOLUME 10.1 fL (7.4-11.4); MONOCYTES # (AUTO) 0.8 10^3/uL (0.0-1.0); MONOCYTES % (AUTO) 11.8 %; NEUTROPHILS % (AUTO) 70.6 %; PLT - PLATELET COUNT 288 10^3/uL (130-450); RED BLOOD COUNT 3.35 10^6/uL (4.70-6.10); RED CELL DISTRIBUTION WIDTH 16.7 % (12.0-15.0); WHITE BLOOD COUNT 7.1 x10^3/uL (4.8-10.8)
[2021-01-19 06:43] LABS: POTASSIUM 2.8 mmol/L (3.5-5.0)
[2021-01-19 06:44] LABS: ALBUMIN 2.8 g/dL (3.2-5.5); ALBUMIN/GLOBULIN RATIO 0.9 (1.0-2.2); BILIRUBIN,TOTAL 0.8 mg/dL (0.2-1.0); CALCIUM 8.9 mg/dL (8.5-10.3); CREATININE 0.6 mg/dL (0.6-1.2); PHOSPHORUS 2.3 mg/dL (2.5-4.6)
[2021-01-19] MEDS: PANTOPRAZOLE 40 MG VIAL IVP SCH (08:50)
[2021-01-19] MEDS: LACTULOSE 10 GM /15 ML UDC PO SCH (08:50)
[2021-01-19] MEDS: POTASSIUM PHOSPHATE 15 MMOL in SODIUM CHLORIDE 0.9% 250 ML IV SCH ×2 (12:05→17:31)
--- NOTE | 2021-01-19 13:54 | PROVIDER PROGRESS NOTE ---
Subjective - General Admit Date: 01/17/21 Procedure Date: 01/17/21 Post Op Days: 2 Procedure Performed: EGD with biopsy and feeding tube placement - Other Other Information/Narrative: Continues to have difficulty managing secretions but Dobhoff tube is functioning and he is tolerating tube feeds. I talked with him about some of his options and the need to go to a higher level of care to fully explore these. Unfortunately, tam pathology showed only necrotic tissue so useless for diagnosis. He will ne ed a repeat diagnostic study. Follow up in the [facility] has alread been arranged. Objective - Patient Data Weight: Weight 01/17/21 01/18/21 01/19/21 23:59 23:59 23:59 Weight (kg) 56.6 kg 56.6 kg 58 kg Intake & Output: Intake and Output Totals x24h 01/17/21 01/18/21 01/19/21 23:59 23:59 23:59 Intake Total 2000.000 1334.717 45 Output Total 0 625 200 Balance 2000.000 709.717 -155 - Lab Results Lab Results: 01/19/21 04:58 01/19/21 04:58 Other Lab Results: Lab Results x24hrs 01/19/21 01/19/21 01/19/21 Range/Units 11:56 06:05 04:58 WBC (4.8-10.8) x10^3/uL RBC (4.70-6.10) 10^6/uL Hgb (14.0-18.0) g/dL Hct (42.0-52.0) % MCV (80.0-94.0) fL MCH (27.0-31.0) pg MCHC (32.0-36.0) g/dL RDW (12.0-15.0) % Plt Count (130-450) 10^3/uL MPV (7.4-11.4) fL Neut # (Auto) (1.5-6.6) 10^3/uL Lymph # (Auto) (1.5-3.5) 10^3/uL [place] # (Auto) (0.0-1.0) 10^3/uL Eos # (Auto) (0.0-0.7) 10^3/uL Baso # (Auto) (0.0-0.1) 10^3/uL Absolute Nucleated RBC x10^3/uL Nucleated RBC % /100WBC Sodium 147 H (135-145) mmol/L Potassium 2.8 L (3.5-5.0) mmol/L Chloride 109 (101-111) mmol/L Carbon Dioxide 29 (21-32) mmol/L Anion Gap 9.0 (6-13) BUN 15 (6-20) mg/dL Creatinine 0.6 (0.6-1.2) mg/dL Estimated GFR (MDRD) 130 (>89) Glucose 136 H (70-100) mg/dL POC Whole Bld Glucose 175 H 130 H (70 - 100) mg/dL Calcium 8.9 (8.5-10.3) mg/dL Phosphorus 2.3 L (2.5-4.6) mg/dL Magnesium 2.0 (1.7-2.8) mg/dL Total Bilirubin 0.8 (0.2-1.0) mg/dL AST 13 (10-42) IU/L ALT 11 (10-60) IU/L Alkaline Phosphatase 86 (42-121) IU/L Total Protein 6.0 L (6.7-8.2) g/dL Albumin 2.8 L (3.2-5.5) g/dL Globulin 3.2 (2.1-4.2) g/dL Albumin/Globulin Ratio 0.9 L (1.0-2.2) Prealbumin 6 L (18-45) mg/dL Blood Type Antibody Screen Crossmatch IS Only 01/19/21 01/19/21 01/18/21 Range/Units 04:58 00:19 17:52 WBC 7.1 (4.8-10.8) x10^3/uL RBC 3.35 L (4.70-6.10) 10^6/uL Hgb 7.2 L (14.0-18.0) g/dL Hct 24.8 L (42.0-52.0) % MCV 74.0 L (80.0-94.0) fL MCH 21.5 L (27.0-31.0) pg MCHC 29.0 L (32.0-36.0) g/dL RDW 16.7 H (12.0-15.0) % Plt Count 288 (130-450) 10^3/uL MPV 10.1 (7.4-11.4) fL Neut # (Auto) 5.0 (1.5-6.6) 10^3/uL Lymph # (Auto) 1.2 L (1.5-3.5) 10^3/uL [place] # (Auto) 0.8 (0.0-1.0) 10^3/uL Eos # (Auto) 0.0 (0.0-0.7) 10^3/uL Baso # (Auto) 0.0 (0.0-0.1) 10^3/uL Absolute Nucleated RBC 0.00 x10^3/uL Nucleated RBC % 0.0 /100WBC Sodium (135-145) mmol/L Potassium (3.5-5.0) mmol/L Chloride (101-111) mmol/L Carbon Dioxide (21-32) mmol/L Anion Gap (6-13) BUN (6-20) mg/dL Creatinine (0.6-1.2) mg/dL Estimated GFR (MDRD) (>89) Glucose (70-100) mg/dL POC Whole Bld Glucose 173 H 173 H (70 - 100) mg/dL Calcium (8.5-10.3) mg/dL Phosphorus (2.5-4.6) mg/dL Magnesium (1.7-2.8) mg/dL Total Bilirubin (0.2-1.0) mg/dL AST (10-42) IU/L ALT (10-60) IU/L Alkaline Phosphatase (42-121) IU/L Total Protein (6.7-8.2) g/dL Albumin (3.2-5.5) g/dL Globulin (2.1-4.2) g/dL Albumin/Globulin Ratio (1.0-2.2) Prealbumin (18-45) mg/dL Blood Type Antibody Screen Crossmatch IS Only 01/17/21 Range/Units 00:08 WBC (4.8-10.8) x10^3/uL RBC (4.70-6.10) 10^6/uL Hgb (14.0-18.0) g/dL Hct (42.0-52.0) % MCV (80.0-94.0) fL MCH (27.0-31.0) pg MCHC (32.0-36.0) g/dL RDW (12.0-15.0) % Plt Count (130-450) 10^3/uL MPV (7.4-11.4) fL Neut # (Auto) (1.5-6.6) 10^3/uL Lymph # (Auto) (1.5-3.5) 10^3/uL [place] # (Auto) (0.0-1.0) 10^3/uL Eos # (Auto) (0.0-0.7) 10^3/uL Baso # (Auto) (0.0-0.1) 10^3/uL Absolute Nucleated RBC x10^3/uL Nucleated RBC % /100WBC Sodium (135-145) mmol/L Potassium (3.5-5.0) mmol/L Chloride (101-111) mmol/L Carbon Dioxide (21-32) mmol/L Anion Gap (6-13) BUN (6-20) mg/dL Creatinine (0.6-1.2) mg/dL Estimated GFR (MDRD) (>89) Glucose (70-100) mg/dL POC Whole Bld Glucose (70 - 100) mg/dL Calcium (8.5-10.3) mg/dL Phosphorus (2.5-4.6) mg/dL Magnesium (1.7-2.8) mg/dL Total Bilirubin (0.2-1.0) mg/dL AST (10-42) IU/L ALT (10-60) IU/L Alkaline Phosphatase (42-121) IU/L Total Protein (6.7-8.2) g/dL Albumin (3.2-5.5) g/dL Globulin (2.1-4.2) g/dL Albumin/Globulin Ratio (1.0-2.2) Prealbumin (18-45) mg/dL Blood Type A POSITIVE Antibody Screen NEGATIVE Crossmatch IS Only See Detail - Current Medications Current Medications: Current Medications Generic Name Dose Route Start Last Admin Trade Name Freq PRN Reason Stop Dose Admin Potassium Phosphate 15 mmol/ 255 mls @ 63.75 mls/hr 01/19/21 12:00 01/19/21 12:05 Sodium Chloride IV 01/19/21 19:59 63.75 mls/hr Q4H WILLIAMS Administration Insulin Human Regular 1 - 5 unit 01/18/21 20:00 01/19/21 12:05 Insulin Regular Human 300 Unit/3 Ml Vial SUBQ 1 unit Q6HR WILLIAMS Administration Protocol Lactulose 10 gm 01/18/21 09:00 01/19/21 08:50 Lactulose 10 Gm /15 Ml Udc PO 10 gm DAILY WILLIAMS Administration Morphine Sulfate 4 mg 01/18/21 06:11 01/19/21 04:49 Morphine 2 Mg/Ml Carpuject IVP 4 mg Q2HR PRN Administration PAIN Pantoprazole Sodium 40 mg 01/18/21 09:00 01/19/21 08:50 Pantoprazole 40 Mg Vial IVP 40 mg DAILY WILLIAMS Administration Sodium Chloride 10 ml 01/17/21 04:49 01/18/21 11:54 Sodium Chloride Flush 0.9% 10 Ml Syringe IVP 10 ml PRN PRN Administration NEEDED PER PROVIDER ORDERS Sodium Chloride 10 ml 01/17/21 09:00 01/19/21 08:50 Sodium Chloride Flush 0.9% 10 Ml Syringe IVP 10 ml 0100,0900,1700 WILLIAMS Administration Impression/Plan - Problem List Problem List: I agree with all plans n place for this unfortunate gentleman. I have written for some ativan as needed for anxiety.
--- NOTE | 2021-01-19 18:39 | PROVIDER PROGRESS NOTE ---
Progress Note January 19, 2021 6:31 PM The patient was finally able to have a bowel movement and has had some relief of his bowel distention and pain. But he is miserable. We were moving forward with a referral to a primary care provider for him to establish himself with a new PCP, and that PCP would then do expeditious referral to oncology for staging and treatment of this presumed esophageal mass. Advance care planning conversation was then held between patient, myself, his , and his [id number] Argelia. Please see that conversation under separate dictation. He cannot swallow his secretions. Periodically he has to cough up or spit up or vomit mucus and blood. His abdomen is tender but not exquisitely so. He feels like he is just been bruised from trying to have the enemas and a bowel movement. He is nauseated. He started to get more more anxious and is asking if he could just get some anxiety medicine to tune down the loud noise in his head of fear and grief. Medications are regular Humulin every 6 hours, Enulose, lorazepam, magnesium citrate as needed, morphine as needed, Zofran as needed, Protonix 40 daily, potassium chloride riders, potassium phosphate riders. Subjective temperature is 37.4. Pulse is 82. Blood pressure 114/46. Respirations 18. 97% on room air. 5 foot 8 inches tall and weighs 58 kg Severely cachectic elderly man who looks much older than stated age. Voice is low and hoarse. He is exhausted. Periodically through my exam he is coughing up or spitting up gross Luis F dark/springer phlegm with streaks of blood. Neck has shotty adenopathy Coarse upper airway sounds but no tachypnea or increased respiratory effort Regular rate and rhythm with a soft systolic ejection murmur left lower sternal border Abdomen is slightly distended, hypoactive bowel sounds, and he winces with pain when I palpate the left lower abdomen and left mid abdomen. He says he feels like he still has to go to the bathroom. But no rebound or guarding. Legs are cachectic, severe loss of muscle mass diffusely. Assessment/plan 1. Esophageal mass. He underwent an EGD the second day of being here but unfortunately the pathology came back as necrotic mass. Dr. Mast and I have discussed the case. She has discussed it with him. 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 Will start atropine drops to help with the secretions. Please see advance care planning conversation. He initially wanted a second opinion, to go see a primary care provider and get established. Then be referred to oncology. After a cyndi conversation with prognosis and what treatment would ensue, he does not want that. He would like to go home. 2. Anemia. He received 1 unit of blood yesterday. Hemoglobin went from 5.9- 7.2 this morning. I will anticipate that he will need further blood if he wants therapy. He keeps on spitting up blood several times an hour. However, if he goes home with hospice, that will not be an option. 3. Protein calorie malnutrition. The family asked if an open gastrostomy tube could be performed. I explained that while that is a possibility, not a probability. I did not think any general surgeon would probably want to do this in view of the terminal diagnosis. Right now he has a Dobbhoff feeding tube and we will continue to feed him through that. Once he loses a Dobbhoff feeding tube it will not be possible to replace it. 4. Currently getting sliding scale insulin before meals for glucose intolerance. That will not be continued in the outpatient setting. 5. Anxiety increased. Start low-dose Ativan as needed.
--- NOTE | 2021-01-19 18:44 | ADVANCE CARE PLANNING NOTE ---
Advance Care Planning - Planning Encounter Date: 01/19/21 Time: 18:40 Purpose: establish care goals Parties in Attendance: off and on on phone, Argelia sister in law in person, patient, daughter and son in law on phone Decisional Capacity of the Patient: alert oriented and able to express himself fully. - Diagnosis for Encounter (1) Esophageal mass Summary: Admitted for severe dysphagia. Found to have esophageal mass on CT. EGD shows a huge tumor eroding into his esophagus and up and down the column of esophageal muscle. Pathology is inconclusive because his necrotic tissue. But there are mets to the liver already. 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 He had already developed insomnia due to stress on the job and he and his friends were drinking beer before bedtime. As time went on, and then he retired, he turned to scotch. So he is drinking quite a bit of scotch before bedtime for very long time. He is always had reflux disease. Love [place] food and hot sauce and did not matter how much reflux he was having he would still eat it. More than a year ago she noticed that his tolerance for indigestion was much less. He was not eating as much of the spicy food that he liked. But she and he attributed to reflux disease. By late winter 2019 he would get up from the table at family gatherings and go outside. Because he is a solitary man, and gets impatient with too many people, they thought that he was just going outside "to get the eggs from the chicken" and have some alone time. She later found out that he was going outside to vomit up the food that he tried to eat during dinner. He could not keep it down. By June of this year he was barely able to keep liquids down much less solids down. He was spending a lot of time in the computer trying to figure out different "cures" to take care of the symptoms. She was urging him to see her primary care provider but he would get very angry and upset with her and she would leave him alone. 2 weeks ago he stopped being able to swallow anything. He is sitting up in bed and coughing all night long and he coughs up "gross springer phlegm" that smells bad. He is lost a tremendous amount of weight and she thinks maybe over 50 pounds. He is a very private person. While he lives his and children, he finds being it with too many people overwhelming. He also finds that his 's Spiritism and her roly can be annoying at times and that her friends will come over and "pray for him". He just cannot stand that. As he is gone through this journey of weight loss and pain and inability to swallow, he is aware that most likely this is something terrible. He had initially thought that he wanted a second opinion. Wanted to see an oncologist, get chemo, get radiation. His [id number], Argelia, is present today when she asked me to please speak to him about the reality of what he wants. We were moving forward with getting him seen by [facility] tomorrow with a PCP to then get referred to oncology. Dr. Mast has spoken to the patient and I have as well with Argelia. I have explained to him that his prognosis is grim. Even [facility] oncology and get started on treatment it still a poor prognosis. I do not know how much time is going to buy him and he may get very sick in the process. He was already leaning towards stopping everything. He was tired of just being in the hospital this short time. Tired of having people poke and prod him and asking questions. He just wanted to be home. And he states "I just want to at home as well. As such after a conversation with his with his on the phone, going in person, daughter and son-in-law on the phone, he is decided that he would rather transition to hospice then move forward with treatment. He asked me to please manage as much of his symptoms as possible. To take away some of the secretions. And to please give him something for the anxiety and to turn off that voice in his head at night when he is alone, in the dark, trying to sleep.He is not having much pain in his chest. States that most of his pain is abdominal from trying to have bowel movements yesterday. Has constant nausea. Constant secretions. Objective/Medical Story: The patient is an 80-year-old white male with no diagnosed past medical problems. He states that last time he visited with a medical professional was in the early . He does not take any outpatient medication. He reports that he used to enjoy drinking scotch with his brother and eating spicy salsa and chips. Early 2020, he noted regurgitation, acid reflux and difficulty swallowing the chips. In June he stopped drinking alcohol completely, subsequently had some trouble with nausea and vomiting and developed even more difficulty swallowing. Initially his swallowing difficulty only included solid foods. A few weeks ago however he started to have more difficulty swallowing even liquids and in the past 3 days he could not keep any liquids down. He used to be 180 pounds, he estimates he lost more than 50 pounds. He does not complain of pain. Reports being constipated. Regarding ER work-up, pertinent results are listed below. Past medical history: No past medical history reported by the patient Unit of blood. EGD is inconclusive because it shows just necrotic tissue. CT of the abdomen shows the is enlarging esophageal mass and a met to the liver. Goals of Care: 1. To go home and at home 2. To have symptom relief from the nausea and the secretions and anxiety 3. Not to do chemo and radiation after all Plan: I will start Ativan as needed tonight. Atropine drops tonight. Will contact hospice in the morning and see if we can transition him to hospice as soon as possible. He would like to go home tomorrow. He states that he is able to go home and be by himself with family. Argelia, his liudav-zi-pox, is a nurse through hospice and will be able to help him as well. Code Status: Do Not Attempt Resuscitation Time spent on advance care plannin
[2021-01-19] MEDS ORDERED: ATROPINE 1% OPHTH DROPS 2 ML SL PRN (19:02)
[2021-01-19] MEDS: POTASSIUM CHLOR 10 MEQ/100 ML 10 MEQ/100 ML BAG IV SCH ×3 (21:31→23:36)
[2021-01-19] MEDS: LORazepam 2 MG/ML VIAL IVP PRN (22:36)
[2021-01-20] MEDS: INSULIN REGULAR HUMAN 300 UNIT/3 ML VIAL SUBQ SCH ×3 (00:44→11:47)
[2021-01-20] MEDS: POTASSIUM CHLOR 10 MEQ/100 ML 10 MEQ/100 ML BAG IV SCH (00:45)
[2021-01-20] MEDS: SODIUM CHLORIDE FLUSH 0.9% 10 ML SYRINGE IVP SCH ×2 (00:45→08:56)
[2021-01-20 05:36] LABS: BASOPHILS % (AUTO) 0.3 %; EOSINOPHILS % (AUTO) 0.1 %; HCT - HEMATOCRIT 23.9 % (42.0-52.0); LYMPHOCYTES # (AUTO) 0.9 10^3/uL (1.5-3.5); LYMPHOCYTES % (AUTO) 12.4 %; MEAN CORPUSCULAR HGB CONC 29.3 g/dL (32.0-36.0); MEAN CORPUSCULAR VOLUME 75.2 fL (80.0-94.0); MEAN PLATELET VOLUME 9.8 fL (7.4-11.4); MONOCYTES # (AUTO) 0.8 10^3/uL (0.0-1.0); MONOCYTES % (AUTO) 11.3 %; NEUTROPHILS # (AUTO) 5.5 10^3/uL (1.5-6.6); NEUTROPHILS % (AUTO) 75.5 %; PLT - PLATELET COUNT 249 10^3/uL (130-450); RED BLOOD COUNT 3.18 10^6/uL (4.70-6.10); RED CELL DISTRIBUTION WIDTH 17.1 % (12.0-15.0); WHITE BLOOD COUNT 7.3 x10^3/uL (4.8-10.8)
[2021-01-20] MEDS: PANTOPRAZOLE 40 MG VIAL IVP SCH (08:56)
[2021-01-20] MEDS: LACTULOSE 10 GM /15 ML UDC PO SCH (08:56)
[2021-01-20] MEDS: LORazepam 2 MG/ML VIAL IVP PRN ×3 (10:08→16:19)
--- NOTE | 2021-01-20 13:37 | DISCHARGE SUMMARY ---
"Discharge Summary Admit Date: 01/17/21 Discharge Date: 01/20/21 Discharging Provider: Alisa Lujan MD Primary Care Provider: Spenser Sierra MD Code Status: Do Not Attempt Resuscitation Condition at Discharge: Poor Discharge Disposition: 50 Hospice/Home DC/Xfer - DIAGNOSES Discharge Diagnoses with Status of Each Condition: 1. 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 Acute on chronic blood loss anemia 3. Severe protein calorie malnutrition 4. Glucose intolerance 5. Anxiety - HPI History of Present Illness: The patient is an 80-year-old white male with no diagnosed past medical problems. He states that last time he visited with a medical professional was in the early . He does not take any outpatient medication. He reports that he used to enjoy drinking scotch with his brother and eating spicy salsa and chips. Early 2020, he noted regurgitation, acid reflux and difficulty s wallowing the chips. In June he stopped drinking alcohol completely, subsequently had some trouble with nausea and vomiting and developed even more difficulty swallowing. Initially his swallowing difficulty only included solid foods. A few weeks ago however he started to have more difficulty swallowing even liquids and in the past 3 days he could not keep any liquids down. He used to be 180 pounds, he estimates he lost more than 50 pounds. He does not complain of pain. Reports being constipated. In the ER CT of the abdomen showed him to have distal esophageal obstruction with thickening and masslike density at the GE junction. Groundglass infiltrates in lower lobes bilaterally. He also had a mass in the anterior segment of the right hepatic lobe that was likely a metastasis. Admission hemoglobin was 7.1. - CONSULTS | PROCEDURES Procedures: 1. Abdomen pelvis CT with the mass in the right hepatic lobe. A distal esophagus with a tumor. Large amount of stool in the colon. Diverticulosis without diverticulitis. No retroperitoneal or mesenteric adenopathies. Lucent T11 vertebral body lesion extending to the right posterior elements suspicious for osseous metastatic disease or early pathological fracture of T11. Small indeterminate gastrohepatic ligament lymph nodes present. Bilateral groundglass infiltrates suspicious for atypical pneumonia but not pulmonary mets. 2. Chest CT with esophageal obstruction and moderately distended proximal esophagus containing fluid and air-fluid level. Distally there is thickening an d appearance of the mass at the GE junction suspicious for esophageal neoplasm. Bilateral groundglass infiltrates suspicious for pneumonia. He is COVID-19 negative. A 1.9 cm mass in the liver. 3. Abdomen x-ray showed Dobbhoff placement was in position. 4. Occult blood negative. 5. Transfusion of 2 units of packed red cells - HOSPITAL COURSE Hospital Course: He was placed in the hospital to be watched for GI bleed since during his visit in the ER he would occasionally cough up bright red blood mixed with his phlegm. Throughout his stay that was a chronic problem. He has obstructed his esophagus so severely that he cannot swallow his own secretions. When he does swallow pools, and then he coughs up blood and tissue mass that is foul-smellin g. He was able to undergo an EGD with Dr. Lisbeth Padilla. She did extensive biopsies but the pathology of the biopsies showed him to have necrotic tissue. Just by visualization she feels this is a large extensive tumor that starts at the GE junction and comes up. And again on CT has metastatic disease. He was hoping that he could make a decision based on the pathology. But when Dr. Coffman and I sat down with him explained that it really does look like has esophageal cancer with mets, and offered radiation/chemo, he opted to go home with hospice. He had asked us if it was worthwhile to do the radiation and chemo and Dr. Coffman and myself explained that while it was definitely an option and an opportunity, he would become quite ill with treatment and it might make him sicker than he already was. He stated that he was already as sick as he wanted to be, he did not want to be any sicker than he was. And wanted to transition to hospice. While he was in the operating room for the EGD, Dr. Coffman was able to pass a Dobbhoff feeding tube. It was the smallest tube that she could put in due to tumor obstruction. We began tube feedings while he was here.He was also transfused 2 units of packed cells. Hemoglobin came down to 5.9 and was transfused 1 unit. On the day of discharge she came down to 7 g of hemoglobin again and was transfused 1 more unit before discharge. The patient met with Dr. Saurabh Sierra, drafter (cad) electronic. Dr. Sierra carefully went over options, including palliative radiation, and the patient was very firm and stating he wanted to go home to at home. I ordered a comfort pack of atropine drops, morphine drops, and Ativan drops. Unfortunately the patient, in his anxiety, pulled out his NG tube. We had been setting him up for tube feedings to go home with but now that was not an option. He kept on saying that he wanted to just go home. As such his and grandson picked him up. They asked for letters to be sent to the [place] for 2 relatives who were in the . I gave them a letter stating that this patient terminally ill. And gave 2 copies of that letter to them. He will be opened up to hospice in the near future. At discharge patient's temperature is 36.5. Heart rate 83. Blood pressure 121/67. Respirations 18. 97% on room air. He is a an exceedingly gaunt, cachectic malnourished elderly gentleman who looks older than stated age. He is 5 foot 8 inches tall and weighs 60.5 kg. Every 2-3 hours he coughs up a collection of saliva, springer matter that is foul-smelling, and bright red streaks of blood. Coarse upper airway tubular breath sounds. Irregular rate and rhythm with a soft systolic murmur. And abdomen that is kyphotic, hypoactive bowel sounds. He had several enemas to relieve the constipation while he was here. Extremities have severe muscle wasting. Skeletal tuberosities are very evident on physical exam. He is weak, he still able to get up to go to the bedside commode. Sometimes he occasionally sits in the bedside chair. Greater than 30 minutes was spent coordinating discharge, discussing the case with his family, speaking to Dr. Sierra, and me verifying that the patient truly wanted to go through with this. - ALLERGIES Allergies/Adverse Reactions: Allergies Allergy/AdvReac Type Severity Reaction Status Date / Time No Known Drug Allergies Allergy Verified 01/16/21 22:09 - MEDICATIONS Home Medications: Ambulatory Orders Medication Instructions Recorded Confirmed Atropine 1% Ophth Drops [Isopto 2 drops SL Q4H PRN #10 ml 01/20/21 Atropine 1% Ophth Drops] LORazepam [Lorazepam INTENSOL] 2 mg PO Q2H PRN #30 ml 01/20/21 Morphine Oral Soln [Roxanol] 10 mg PO Q2H #30 ml 01/20/21 - LABS Result Diagrams: 01/20/21 05:13 01/19/21 04:58"
--- NOTE | 2021-01-20 13:40 | Discharge Plan ---
Discharge Plan Problem Reviewed?: Yes Disposition: 50 Hospice/Home DC/Xfer Condition: Poor Prescriptions: Atropine 1% Ophth Drops [Isopto Atropine 1% Ophth Drops] 2 drops SL Q4H PRN #10 ml PRN Reason: Excessive Secretions LORazepam [Lorazepam INTENSOL] 2 mg PO Q2H PRN #30 ml PRN Reason: Anxiety Morphine Oral Soln [Roxanol] 10 mg PO Q2H #30 ml Diet: Soft (tube feeds thru dobhoff feeding tube in nose) Activity Restrictions: Activity as Tolerated Shower Restrictions: No Driving Restrictions: Yes (no driving) Health Concerns: You presented to our emergency room with inability to swallow. You have been having increasing reflux and indigestion for close to 2 years. You began having problems with swallowing. He was starting to sit up at night because he could not lay flat due to secretions not being able to go down. At times relieving the table to go vomit outside because food would not go down. By June of this year it became very serious and you lost quite a bit of weight. A couple of weeks ago you were unable to swallow anything at all including liquids. He finally became so fatigued and unable to swallow your secretions that you came to the emergency room. 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 Dr. Lisbeth Padilla did an upper endoscopy to get pieces of this tumor for diagnosis. Unfortunately the tumor is so large that parts of it are already dying and the biopsy she obtained was that of already muscle tissue. However it is large, dying and parts of it, bleeding, and completely obstructing your esophagus. 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 You have been transfused 2 units of blood. Unfortunately you are unable to swallow your secretions and between your saliva, pieces of tumor, and bleeding from the tumor, you have to cough that up very frequently. Plan of Treatment: 1. You are very miserable. Your main problem is that of anxiety. You do not want to go through radiation, chemotherapy since there is not a reasonable expectation that you will improve your quality of life much beyond what you already have. As such you have asked us to transition you to hospice and you have made a definitive statement that you want to go home to . 2. Your main complaint is not pain. It is the secretions and the anxiety. As such, we will use atropine drops to control your secretions. 1 or 2 drops every few hours to help with that. Liquid Ativan is the anxiety medicine; it can be placed through your Dobbhoff feeding tube every 2 hours as needed as well. Or under your tongue. In case you do have pain, we have started you on Roxanol drops. You can put these medicine thru the tube but all of the drops we have provided do not have to go down thru the tube. All of them can be sublingual with drops on your tongue or under your tongue. They have been called into [facility] in [place]. 3. You have met the director of hospice, Dr. Spenser Sierra. He will become your new primary care provider as you go through this journey. You will be opened up to hospice in the next week. Care Goals: 1. To pass away at home 2. To reduce the amount of anxiety you are having 3. To find a way to control the secretions in your mouth 4. You have specifically requested a peaceful environment at home. You only want specific visitors. You really want to be only with your children, Argelia your [id number], or your . Argelia will be your intermediary with your to let you know who you want at home visiting you. You do not want a lot of phone calls and you do not want a lot of prayer groups. Assessment: He is very specific about his care goals. His [id number], Argelia, was in the room when we went over these instructions before discharge Follow-Up Care: Hospice No Smoking: If you smoke, Please STOP! Call for help.
[2021-01-20 15:52] VITALS: BP 121/67
== END 2021-01-20 17:44 | disposition hospice, home (50) | DRG 374 ==
LOC: ED 21:45 → MS3 01-17 04:49
PROVIDERS: ADMIT Internal Medicine; ATTEND Specialist
PROC: 0DH58UZ Insertion of Feeding Device into Esophagus, Via Natural or Artificial Opening Endoscopic (ICD-10-PCS; 2021-01-17)
PROC: 0DD58ZX Extraction of Esophagus, Via Natural or Artificial Opening Endoscopic, Diagnostic (ICD-10-PCS; principal; 2021-01-17 15:45)
PROC: 30233N1 Transfusion of Nonautologous Red Blood Cells into Peripheral Vein, Percutaneous Approach (ICD-10-PCS; 2021-01-18)
DX: K22.2 Esophageal obstruction (principal); D64.9 Anemia, unspecified; R16.0 Hepatomegaly, not elsewhere classified; Z20.822 Contact with and (suspected) exposure to COVID-19; C15.5 Malignant neoplasm of lower third of esophagus; E43 Unspecified severe protein-calorie malnutrition; C78.7 Secondary malignant neoplasm of liver and intrahepatic bile duct; D62 Acute posthemorrhagic anemia; Z68.1 Body mass index [BMI] 19.9 or less, adult; R64 Cachexia; E74.39 Other disorders of intestinal carbohydrate absorption; F41.9 Anxiety disorder, unspecified; Z66 Do not resuscitate; K59.00 Constipation, unspecified; M62.50 Muscle wasting and atrophy, not elsewhere classified, unspecified site; R53.1 Weakness; E86.0 Dehydration; E88.89 Other specified metabolic disorders
CPT/HCPCS: 36415; 71260; 74018; 74177; 80053; 81003; 82272; 83036; 83690; 83735; 84100; 84134; 85025; 85610; 85730; 86850; 86900; 86901; 86920; 87631; 96360; 99284; 99285; A9270; J1815; J2060; P9016; P9040; Q9967; 0202U; 81001; 87086